=== PATIENT | female | born 1975 | race African-American/Black ===

== ENCOUNTER 2018-10-12 15:22 | Emergency (ER) | payer SELFPAY ==
[~2018-10-12] VITALS: Ht 163.8 cm; Wt 49.9 kg
--- NOTE | 2018-10-12 16:36 | PHYS DOC ---
Adult General Chief Complaint Chief Complaint: FOOT INJURY PAIN HPI HPI Patient is a 42 year old female that presents to the ER after tripping over a concrete rock on Wednesday. The patient complains of right foot pain, right tibia- fibula pain, and right ankle pain. The patient has swelling to the right foot. Patient rates her pain as 9 out of 10 in severity and sharp. The patient states she's taken Tylenol at home and has been elevating her leg. Review of Systems Review of Systems Constitutional: Denies fever or chills [] Eyes: Denies change in visual acuity, redness, or eye pain [] HENT: Denies nasal congestion or sore throat [] Respiratory: Denies cough or shortness of breath [] Cardiovascular: No additional information not addressed in HPI [] GI: Denies abdominal pain, nausea, vomiting, bloody stools or diarrhea [] : Denies dysuria or hematuria [] Musculoskeletal: Reports R lower extremity pain. Integument: Denies rash or skin lesions [] Neurologic: Denies headache, focal weakness or sensory changes [] Endocrine: Denies polyuria or polydipsia [] Complete systems were reviewed and found to be within normal limits, except as documented in this note. Current Medications Current Medications Current Medications Medications (Trade) Dose Ordered Sig/Delonte Start Time Stop Time Status Last Admin Dose Admin Ketorolac Tromethamine (Toradol Im) 30 mg 1X ONCE 10/12/18 16:45 10/12/18 17:05 DC 10/12/18 17:13 30 MG Allergies Allergies Allergies Coded Allergies Type Severity Reaction Last Updated Verified Penicillins Allergy Intermediate 10/12/18 Yes Physical Exam Physical Exam Constitutional: Well developed, well nourished, no acute distress, non-toxic appearance. [] HENT: Normocephalic, atraumatic, bilateral external ears normal, oropharynx moist, no oral exudates, nose normal. [] Eyes: PERRLA, EOMI, conjunctiva normal, no discharge. [] Neck: Normal range of motion, no tenderness, supple, no stridor. [] Cardiovascular:Heart rate regular rhythm, no murmur [] Lungs & Thorax: Bilateral breath sounds clear to auscultation [] Abdomen: Bowel sounds normal, soft, no tenderness, no masses, no pulsatile masses. [] Skin: Warm, dry, no erythema, no rash. [] Back: No tenderness, no CVA tenderness. [] Extremities: Edema and tenderness to lateral R foot, R ankle tenderness, R lower extremity tenderness. Neurologic: Alert and oriented X 3, normal motor function, normal sensory function, no focal deficits noted. [] Psychologic: Affect normal, judgement normal, mood normal. [] Current Patient Data Vital Signs Vital Signs Date Time Temp Pulse Resp B/P (MAP) Pulse Ox O2 Delivery O2 Flow Rate FiO2 10/12/18 17:01 98.3 81 16 141/84 (103) 98 Room Air 98.3 EKG EKG [] Radiology/Procedures Radiology/Procedures []PATIENT: JAMI GOMEZ MACCOUNT: [id number]#: [id number] : 1975 LOCATION: ER AGE: 42 SEX: F EXAM STATUS: REG ER ORD. PHYSICIAN: TOMAS LINARES APRN REASON: trauma PROCEDURE: ANKLE RIGHT 3V ANKLE RIGHT 3V, FOOT RIGHT 3V, TIBIA FIBULA RIGHT 10/12/2018 4:33 PM INDICATION: Trauma COMPARISON: None available. TECHNIQUE: 3 views of the right foot, 2 views of the right tibia and fibula and 3 views the right ankle are provided. FINDINGS: Tibia and fibula appear intact. No acute fracture or dislocation involving the ankle. There is a transversely oriented fracture involving the base of the fifth metatarsal with extension to the intermetatarsal space of the fourth and fifth metatarsals. Bone mineralization is within normal limits. Joint spaces are maintained. Mild soft tissue swelling along the lateral aspect of the foot. There is no soft tissue gas or osseous erosion. IMPRESSION: Transversely oriented, nondisplaced fracture involving the base of the fifth metatarsal with associated soft tissue swelling. Electronically signed by: Ifeoma Deluca MD (10/12/2018 4:58 PM) [facility] DICTATED and SIGNED BY: IFEOMA DELUCA MD DATE: 10/12/18 7143 Course & Med Decision Making Course & Med Decision Making Pertinent Labs and Imaging studies reviewed. (See chart for details) Will give Toradol and get imaging. The patient has a 5th metatarsal fracture. Will page Dr. Wei with ortho regarding fracture. Discussed with Dr. Wei, will place in boot and crutches and have follow up with ortho. Fuentes Disclaimer Gina Disclaimer This electronic medical record was generated, in whole or in part, using a voice recognition dictation system. Departure Departure Impression: Primary Impression: Fracture of 5th metatarsal Disposition: HOME, SELF-CARE Condition: STABLE Referrals: NO PCP (PCP) ALANNA WEI MD Patient Instructions: Metatarsal Fracture, Undisplaced Additional Instructions: Thank you for visiting [facility]. We appreciate you trusting us with your care. If any additional problems come up don't hesitate to return to visit us. Please follow up with your primary care provider so they can plan additional care if needed and know about the problem that you had. If symptoms worsen come back to the Emergency Department. Any concerning symptoms that start such as chest pain, shortness of air, weakness or numbness on one side of the body, running high fevers or any other concerning symptoms return to the ER. Please fill your medications at any pharmacy and follow the prescription instructions. Scripts Hydrocodone/Apap 5-325 (NORCO 5-325 TABLET) 1 Each Tablet 1 TAB PO PRN Q6HRS PRN for PAIN for 10 Days, TAB 0 Refills Prov: TOMAS LINARES APRN 10/12/18 Ondansetron (ONDANSETRON ODT) 4 Mg Tab.rapdis 1 TAB PO PRN Q6-8HRS PRN for NAUSEA, #16 TAB Prov: TOMAS LINARES APRN 10/12/18 Problem Qualifiers Primary Impression: Fracture of 5th metatarsal Encounter type: initial encounter Fracture type: closed Fracture alignment: nondisplaced Laterality: right Qualified Codes: S92.354A - Nondisplaced fracture of fifth metatarsal bone, right foot, initial encounter for closed fracture TOMAS LINARES APRN Oct 12, 2018 16:36
[2018-10-12] MEDS ORDERED: KETOROLAC 60 MG/2 ML VIAL. IM ONE (16:45)
[2018-10-12 17:01] VITALS: BP 141/84
--- NOTE | 2018-10-12 17:02 | RAD ---
ANKLE RIGHT 3V, FOOT RIGHT 3V, TIBIA FIBULA RIGHT 10/12/2018 4:33 PM INDICATION: Trauma COMPARISON: None available. TECHNIQUE: 3 views of the right foot, 2 views of the right tibia and fibula and 3 views the right ankle are provided. FINDINGS: Tibia and fibula appear intact. No acute fracture or dislocation involving the ankle. There is a transversely oriented fracture involving the base of the fifth metatarsal with extension to the intermetatarsal space of the fourth and fifth metatarsals. Bone mineralization is within normal limits. Joint spaces are maintained. Mild soft tissue swelling along the lateral aspect of the foot. There is no soft tissue gas or osseous erosion. IMPRESSION: Transversely oriented, nondisplaced fracture involving the base of the fifth metatarsal with associated soft tissue swelling. Electronically signed by: Shilpa Florence MD (10/12/2018 4:58 PM) [facility]
[2018-10-12] MEDS ORDERED: HYDR-3164 PO (17:45)
[2018-10-12] MEDS ORDERED: ONDA4TAB12 PO (17:45)
--- NOTE | 2018-10-13 15:17 | VNOTE ---
CALL BACK NOTE CALL BACK [facility] called regarding norco prescription as there was no quantity listed. Advised the pharmacist that patient can fill 12 hydrocodone. Take 0.5-1 tab q6h prn pain PAIGE ALVARADO [employer]PER[employer] SUPPORT ANALYST Oct 13, 2018 15:17
== END 2018-10-12 18:10 | disposition home or self-care (01) ==
LOC: ER 15:22
DX: S92.354A Nondisplaced fracture of fifth metatarsal bone, right foot, initial encounter for closed fracture (principal); Z88.0 Allergy status to penicillin; W22.8XXA Striking against or struck by other objects, initial encounter; Y93.89 Activity, other specified; Y92.89 Other specified places as the place of occurrence of the external cause; Y99.8 Other external cause status
CPT/HCPCS: 73590; 73610; 73630; 96372; 99284; J1885

== ENCOUNTER 2020-11-21 16:39 | Emergency (ER) | payer SELFPAY ==
[~2020-11-21] VITALS: Ht 167.6 cm; Wt 52.0 kg
[~2020-11-21 16:39] MED LIST: HYDR-3164 PO; ONDA4TAB12 PO
[2020-11-21 17:25] VITALS: BP 142/78
--- NOTE | 2020-11-21 17:28 | PHYS DOC ---
Past Medical History Past Medical History: No Pertinent History Past Surgical History: Smoking Status: Current Every Day Smoker Alcohol Use: Rarely Drug Use: None General Adult EDM: Chief Complaint: ANKLE PROBLEM HPI: HPI: Patient is a 45 year old female who present to ER for evaluation of left foot and ankle pain. Patient says she was walking yesterday she tripped over something on the ground, twisted her left foot and ankle. She has been able to walk but the pain become more severe and her foot and ankle become more swollen this morning so she came here for evaluation. Patient denies any pain in her left knee. Patient denies any other injury. Review of Systems: Review of Systems: Constitutional: Denies fever or chills. [] Eyes: Denies change in visual acuity. [] HENT: Denies nasal congestion or sore throat. [] Respiratory: Denies cough or shortness of breath. [] Cardiovascular: Denies chest pain or edema. [] GI: Denies abdominal pain, nausea, vomiting, bloody stools or diarrhea. [] : Denies dysuria. [] Musculoskeletal: Positive for left foot and ankle pain Integument: Denies rash. [] Neurologic: Denies headache, focal weakness or sensory changes. [] Endocrine: Denies polyuria or polydipsia. [] Lymphatic: Denies swollen glands. [] Psychiatric: Denies depression or anxiety. [] Heart Score: C/O Chest Pain: N/A Risk Factors: Risk Factors: DM, Current or recent (<one month) smoker, HTN, HLP, family history of CAD, obesity. Risk Scores: Score 0 - 3: 2.5% MACE over next 6 weeks - Discharge Home Score 4 - 6: 20.3% MACE over next 6 weeks - Admit for Clinical Observation Score 7 - 10: 72.7% MACE over next 6 weeks - Early Invasive Strategies Allergies: Allergies: Allergies Coded Allergies Type Severity Reaction Last Updated Verified Penicillins Allergy Intermediate 10/12/18 Yes Physical Exam: PE: Constitutional: Well developed, well nourished, no acute distress, non-toxic appearance. [] HENT: Normocephalic, atraumatic, bilateral external ears normal, oropharynx moist, no oral exudates, nose normal. [] Eyes: PERRLA, EOMI, conjunctiva normal, no discharge. [] Skin: Warm, dry, no erythema, no rash. [] Back: No tenderness, no CVA tenderness. [] Extremities: Left foot and ankle are swollen, there is tenderness to palpation along the lateral malleolus area and at the base of the fifth metatarsal bone. There is no tenderness to palpation along the left leg proximal area, no tenderness to palpation on the left knee Neurologic: Alert and oriented X 3, normal motor function, normal sensory function, no focal deficits noted. [] Psychologic: Affect normal, judgement normal, mood normal. [] EKG: EKG: [] Radiology/Procedures: Radiology/Procedures: X-ray of the left ankle and left foot show nondisplaced fracture distal fibula. Splinting Procedure: Indication:left distal fibula fx Splint was done by: PORT DRIER Method: STIRR UP Material:ORTHOGLASS MATERIAL Post Splinting exam was done by this physician, capillary refill of the affected extremity was less than 2 seconds, no focal neurovascular deficit. No evidence of compartment syndrome. Complication : none, patient tolerated procedure well. Course & Med Decision Making: Course & Med Decision Making Pertinent Labs and Imaging studies reviewed. (See chart for details) Patient had nondisplaced left distal fibula fracture, a stirrup splint was applied, patient was sent home with crutches. Patient will be discharged home, she will need to follow-up with orthopedics for outpatient evaluation treatment Gina Disclaimer: Gina Disclaimer: This electronic medical record was generated, in whole or in part, using a voice recognition dictation system. Departure Departure Impression: Primary Impression: Closed fracture of left distal fibula Disposition: HOME / SELF CARE / HOMELESS Condition: STABLE Referrals: NO PCP (PCP) TOMAS CARRILLO DO Please call this orthopedic surgeon for follow up Patient Instructions: Fibular Fracture, Ankle, Adult, Undisplaced, Treated with Immobilization Additional Instructions: Thank you for visiting our Emergency Department. We appreciate you trusting us with your care. If any additional problems come up don't hesitate to return to visit us. Please follow up with your primary care provider so they can plan additional care if needed and know about the problem that you had. If symptoms worsen come back to the Emergency Department. Any concerning symptoms that start such as chest pain, shortness of air, weakness or numbness on one side of the body, running high fevers or any other concerning symptoms return to the ER. Scripts Tramadol Hcl (TRAMADOL HCL) 50 Mg Tablet 50 MG PO Q6HRS PRN for PAIN, #20 TAB Prov: MARLENY BRADSHAW DO 11/21/20 MARLENY BRADSHAW DO Nov 21, 2020 17:28
[2020-11-21] MEDS ORDERED: TRAM50TA PO ×2 (17:59→18:07)
--- NOTE | 2020-11-21 19:09 | RAD ---
XR FOOT_LEFT 3 VIEWS, XR EXAM OF ANKLE_LEFT 3V DATE: 11/21/2020 5:49 PM INDICATION: left foot injury , left ankle injury COMPARISON: None. FINDINGS: Bones: Acute nondisplaced lateral malleolus fracture extending superolaterally from the level of the ankle joint. Joints: The ankle mortise is congruent. No widening of the distal tibiofibular syndesmosis. Miscellaneous: Lateral ankle soft tissue swelling IMPRESSION: Acute nondisplaced lateral malleolus fracture Electronically signed by: Mo Lee MD (11/21/2020 7:07 PM) [facility]
== END 2020-11-21 18:22 | disposition home or self-care (01) ==
LOC: ER 16:39
DX: S82.832A Other fracture of upper and lower end of left fibula, initial encounter for closed fracture (principal); F17.200 Nicotine dependence, unspecified, uncomplicated; Z88.0 Allergy status to penicillin; W22.8XXA Striking against or struck by other objects, initial encounter; Y93.01 Activity, walking, marching and hiking; Y92.89 Other specified places as the place of occurrence of the external cause; Y99.8 Other external cause status
CPT/HCPCS: 29515; 73610; 73630; 99283; 99284